=== PATIENT | female | born 1985 ===

== ENCOUNTER 2016-09-12 15:18 | Emergency (ER) | payer OTHER ==
[~2016-09-12] VITALS: Ht 157.5 cm; Wt 79.0 kg
[2016-09-12 15:23] VITALS: Ht 157.5 cm; Wt 79.0 kg
[2016-09-12 17:10] LABS: BASOPHILS % 0.4 % (0.0-2.0); EOSINOPHILS # 0.1 10^3/ul (0.0-0.5); EOSINOPHILS % 1.1 % (0.0-7.0); HEMATOCRIT 37.5 % (37.0-47.0); HEMOGLOBIN 13.1 g/dl (12.0-16.0); LYMPHOCYTES % 17.6 % (15.0-51.0); MEAN CORPUSCULAR HEMOGLOBIN 30.4 pg (29.0-33.0); MEAN CORPUSCULAR HGB CONC 34.9 g/dl (32.0-37.0); MEAN CORPUSCULAR VOLUME 87.2 fl (82.0-101.0); MEAN PLATELET VOLUME 9.9 fl (7.4-10.4); MONOCYTE # 0.4 10^3/ul (0.3-0.9); MONOCYTES % 6.5 % (0.0-11.0); NEUTROPHIL # 4.1 10^3/ul (1.6-7.5); NEUTROPHILS % 74.4 % (39.0-77.0); PLATELET COUNT 160 10^3/UL (140-440); UNCORRECTED WBC 5.5 10^3/ul (4.8-10.8); WHITE BLOOD COUNT 5.5 10^3/ul (4.8-10.8)
--- NOTE | 2016-09-12 17:15 | ERD ---
ER Documentation Chief Complaint Date/Time DATE: 09/12/16 TIME: 17:12 Chief Complaint 11 WEEKS WITH SPOTTING HPI Farsi speaking 30-year-old female who is a at approximately 10 and 4 by dates who presents to the emergency room with vaginal spotting. The patient is a limited historian mostly because of language barrier. The patient states that she was sent to the emergency room from the clinic today because she "needed to receive hormone to prevent her miscarriage ". After further investigation it appears that the patient was at [facility] at 2 AM this morning. Her laboratory testing showed a slightly downtrending hCG from prior on September 05. The patient has had some spotting and passage of clots over this timeframe. She denies any pain. Her ultrasound from 2 AM this morning showed an intrauterine gestation with good heart tones, no significant hemorrhage. The patient also had a UTI and was written for prescription of Macrobid. The patient then went to a clinic who did not evaluate her and sent her directly to our emergency room. Symptoms are unchanged from this morning. ROS All systems reviewed and are negative except as per history of present illness. Allergies Allergies: Coded Allergies: No Known Allergy (Unverified , 09/12/16) PMhx/Soc Medical and Surgical Hx: pt denies Medical Hx, pt denies Surgical Hx Hx Alcohol Use: No Hx Substance Use: No Hx Tobacco Use: No FmHx Family History: No diabetes Physical Exam Vitals Vital Signs Date Time Temp Pulse Resp B/P Pulse Ox O2 Delivery O2 Flow Rate FiO2 09/12/16 15:23 98.1 76 18 103/49 99 Physical Exam General: Well developed, well nourished, no acute distress Head: Normocephalic, atraumatic. Eyes: EOM intact ENT: Moist mucous membranes Neck: Full ROM Respiratory: No respiratory distress Cardiovascular: Good capillary refil Abdominal: Nondistended, soft, no rebound or guarding : Deferred MSK: No edema, no unilateral swelling, 5/5 strength Neurologic: Alert and oriented, moving all extremities, normal speech, steady gait Skin: No rash Psych: Normal mood Result Diagram: 09/12/16 1739 Results 24 hrs Laboratory Tests Test 09/12/16 16:52 09/12/16 16:55 Urine Bacteria MODERATE Urine Bilirubin 1+ Urine Calcium Oxalate Crystals MODERATE Urine Clarity CLOUDY Urine Color DK. YELLOW Urine Glucose NEGATIVE% Urine Hemoglobin 2+ Urine Ictotest POSITIVE Urine Ketones NEGATIVE Urine Leukocyte Esterase NEGATIVE Urine Microscopic RBC 2-5/HPF Urine Microscopic WBC 5-10/HPF Urine Mucus MANY Urine Nitrite NEGATIVE Urine Specific Carlton >=1.030 Urine Squamous Epithelial Cells MANY Urine Starch Urine Total Protein 1+ Urine Urobilinogen 0.2 E.U./dL Urine pH 5.5 Basophils # 0.010^3/ul Basophils % 0.4% Beta HCG, Quantitative 92042.0mIU/ml Eosinophils # 0.110^3/ul Eosinophils % 1.1% Hematocrit 37.5% Hemoglobin 13.1g/dl Lymphocytes # 1.010^3/ul Lymphocytes % 17.6% Mean Corpuscular Hemoglobin 30.4pg Mean Corpuscular Hemoglobin Concent 34.9g/dl Mean Corpuscular Volume 87.2fl Mean Platelet Volume 9.9fl Monocytes # 0.410^3/ul Monocytes % 6.5% Neutrophils # 4.110^3/ul Neutrophils % 74.4% Nucleated Red Blood Cells # 0.010^3/ul Nucleated Red Blood Cells % 0.0/100WBC Platelet Count 55410^3/UL Red Blood Count 4.3010^6/ul Red Cell Distribution Width 13.0% White Blood Count 5.510^3/ul Procedures/MDM EKG, MONITORS, & DIAGNOSTIC IMAGING: Pelvic ultrasound: IMPRESSION: Single live intrauterine with an estimated gestational age of 11 weeks and 2 days, based on ultrasound measurements. BEATRICE based on ultrasound measurements is 8/2/17. 3 cm simple cyst in the right ovary. Pelvic ultrasound from [facility] at 2 AM showed evidence of intrauterine gestation with heart tones estimated gestation of 10 and 4 with heart tones of 160 LAB INTERPRETATION: Serum hC,000, increasing hCG from [facility] of 47,090 which is down from an evaluation on September 05 from 50,651 Rh status: Positive, no indication for RhoGam MEDICAL DECISION MAKING: I believe there is some acute infusing information being given to this patient mostly likely secondary to language barrier. She was sent to receive "hormone therapy to prevent her miscarriage ". I am unclear of this process and I believe that she may misunderstood discharge instructions to have a repeat hCG in 24-48 hours. The patient's ECG has been downtrending during this with the spotting which is concerning for possible inevitable miscarriage. She has no evidence of ectopic . I attempted to educate the patient using an medical office receptionist assistant. This was somewhat difficult. The patient has not seen an OB/ CORPORATE RECEPTIONIST since moving from [place]. I spent greater than 30 minutes in the room with this patient attempting to sort through these issues. She did not have a name of the clinic that center and did not have any paperwork from the clinic I sent her. She gave me [facility], using [employer] I was unable to find a clinic [place] [facility] [place] [facility]. The patient's symptoms are most consistent with acute threatened miscarriage. She exhibits no signs or symptoms concerning for acute ectopic however this needs to be evaluated here in the emergency room and be ruled out. In addition I doubt other acute intra-abdominal process such as ovarian cyst, ovarian torsion, acute appendicitis, colitis, kidney stone, acute pancreatitis or acute cholecystitis. The patient will require further evaluation, laboratory testing and diagnostic imaging to evaluate and rule out acute ectopic . Patient will also require prompt outpatient [facility] follow-up. We discussed this at the bedside. We had an in-depth conversation regarding the diagnosis of threatened miscarriage, the prevalence of this process, the expected management as well as return precautions. ER COURSE: The patient's laboratory testing is reassuring. The patient's hCG is increasing , ultrasound confirms IUP. The patient already has a prescription for Macrobid for asymptomatic pyuria and . The patient will be discharged with OB/ CORPORATE RECEPTIONIST clinic referral information. The patient was informed laboratory testing was printed off and the patient's ultrasound was given as a report to the patient. I kept the patient and/or family informed of laboratory and diagnostic imaging results throughout the emergency room course. DISPOSITION PLAN: We discussed follow up with the patient's primary care doctor within 24 to 48 hours as needed. We also discussed return to the emergency room for worsening symptoms or worsening condition. Close outpatient [facility] follow-up for repeat hCG value in 2-3 days and ultrasound as needed. Discharge medications: None Departure Diagnosis: Primary Impression: Threatened miscarriage Additional Impression: Asymptomatic bacteriuria during Condition: YOLANDA Vines MD Sep 12, 2016 17:15
[2016-09-12 17:24] LABS: CONDITION 1
[2016-09-12 17:46] LABS: ADD UMIC YES; URINE BILIRUBIN (Dip) 1+ (NEGATIVE); URINE BLOOD (Dip) 2+ (NEGATIVE); URINE COLOR DK. YELLOW (YELLOW); URINE GLUCOSE (Dip) NEGATIVE (NEGATIVE); URINE KETONES (Dip) NEGATIVE (NEGATIVE); URINE LEUKOCYTE ESTERASE (Dip) NEGATIVE (NEGATIVE); URINE NITRITE (Dip) NEGATIVE (NEGATIVE); URINE TOTAL PROTEIN (Dip) 1+ (NEGATIVE); URINE UROBILINOGEN (Dip) 0.2 E.U./dL (0.1-1.0)
--- NOTE | 2016-09-12 18:02 | RADRPT ---
PROCEDURE: US OB. CLINICAL INDICATION: Vaginal bleeding TECHNIQUE: Transabdominal views of the pelvis are available for review. COMPARISON: No prior studies are available for comparison. FINDINGS: There is a single intrauterine gestation with the crown-rump length measuring 4.6 cm, corresponding to a gestational age of 11 weeks and 2 days. The heart rate is noted at 163 bpm. Normal Doppler flow is identified in both ovaries. The right ovary measures 5.2 x 3.5 x 4.3 cm. There is a 3 cm simple cyst in the right ovary. The left ovary measures 3.5 x 2.0 x 2.6 cm. There is no free fluid. RPTAT: AA IMPRESSION: Single live intrauterine with an estimated gestational age of 11 weeks and 2 days, based o n ultrasound measurements. BEATRICE based on ultrasound measurements is 04/01/17. 3 cm simple cyst in the right ovary. .Julius Orozco MD, MD Date Time Electronically viewed and signed by .Julius Orozco MD, on 09/12/2016 18:02 .S/
[2016-09-12 18:06] LABS: ICTOTEST POSITIVE (NEGATIVE); MUCUS,URINE MANY; SQUAMOUS EPITHELIAL CELL,UR MANY
[2016-09-12 18:07] LABS: BACTERIA,URINE MODERATE
[2016-09-12 19:01] VITALS: BP 110/52; PULSE 75; RESP 18; TEMP 98.1
== END 2016-09-12 19:01 | disposition home or self-care (01) ==
LOC: FTE 15:18
DX: O20.0 Threatened abortion (principal); O23.591 Infection of other part of genital tract in pregnancy, first trimester
CPT/HCPCS: 36415; 76801; 81001; 84702; 85025; 86900; 86901; Z7502; 81003